=== PATIENT | female | born 1990 | race African-American/Black ===

== ENCOUNTER 2017-03-03 20:22 | Emergency (ER) | payer MEDICAID ==
[~2017-03-03] VITALS: Ht 157.5 cm; Wt 102.2 kg
[~2017-03-03 20:22] MED LIST: ALBUTEROL
[2017-03-03] MEDS ORDERED: SODIUM CHLORIDE 0.9% 1,000 ML IV ONE (23:50)
[2017-03-04] MEDS ORDERED: VANCOMYCIN 1 G PREMIX 200 ML IV ONE
[2017-03-04] MEDS ORDERED: CEFTRIAXONE 1 G PREMIX 50 ML IV ONE
[2017-03-04 03:00] VITALS: BP 129/64
== END 2017-03-04 04:10 | disposition home or self-care (01) ==
LOC: ER 22:34
DX: L03.116 Cellulitis of left lower limb (principal); J45.909 Unspecified asthma, uncomplicated; Z88.6 Allergy status to analgesic agent
CPT/HCPCS: 93005; 96365; 96366; 96367; 99285; J0696; J3370; J7030; Z7610